=== PATIENT | male | born 1980 | race Caucasian/White ===

== ENCOUNTER 2017-09-04 05:34 | Day surgery (SDC) | payer OTHER ==
[2017-09-04] MEDS ORDERED: CEFAZOLIN 2 GM/50 ML (PMX) 50 ML IVPB (06:00)
[2017-09-04] MEDS ORDERED: LACTATED RINGER'S 1,000 ML IV* (06:00)
[2017-09-04] MEDS ORDERED: ROCURONIUM 50 MG INJ (06:29)
[2017-09-04] MEDS ORDERED: FENTAnyl 50 MCG/ML VIAL (06:29)
[2017-09-04] MEDS ORDERED: NEOSTIGMINE 3 MG/3 ML SYRINGE (06:29)
[2017-09-04] MEDS ORDERED: PROPOFOL 20 ML (06:29)
[2017-09-04] MEDS ORDERED: LIDOCAINE 2% (SDV) 5 ML INJ (06:29)
[2017-09-04] MEDS ORDERED: MIDAZOLAM 1 MG/ML 2 ML INJ (06:29)
[2017-09-04] MEDS ORDERED: GLYCOPYRROLATE 0.4 MG INJ (06:29)
[2017-09-04] MEDS ORDERED: ATROPINE 1 MG/10 ML SYRINGE IV (06:30)
[2017-09-04] MEDS ORDERED: LABETALOL HCL 20MG INJ IV (06:30)
[2017-09-04] MEDS ORDERED: EPHEDrine SULFATE 50 MG/5 ML SYG IV (06:30)
[2017-09-04] MEDS ORDERED: MIDAZOLAM 1 MG/ML 2 ML INJ IV (06:30)
[2017-09-04] MEDS ORDERED: OXYCODONE/ACETAMINOPHEN (5/325) TAB PO ×2 (06:30)
[2017-09-04] MEDS ORDERED: morphine (1 MG/ML) 10ML SYRINGE IV ×3 (06:30)
[2017-09-04] MEDS ORDERED: DEXAMETHASONE 4 MG/ML 1 ML INJ (06:30)
[2017-09-04] MEDS ORDERED: DIPHENHYDRAMINE 50 MG INJ IV (06:30)
[2017-09-04] MEDS ORDERED: hydrALAzine 20 MG INJ IV (06:30)
[2017-09-04] MEDS ORDERED: MEPERIDINE 25 MG INJ IV (06:30)
[2017-09-04] MEDS ORDERED: FENTAnyl 50 MCG/ML VIAL IV ×2 (06:30)
[2017-09-04] MEDS ORDERED: HYDROmorphONE (0.2 MG/ML) 10ML SYG IV (06:30)
[2017-09-04] MEDS ORDERED: ONDANSETRON 4 MG INJ (06:31)
[2017-09-04] MEDS ORDERED: SUCCINYLCHOLINE CHLORIDE 100 MG/5 ML SYG IV (06:36)
[2017-09-04] MEDS ORDERED: GELATIN SIZE 100 SPONGE (06:55)
[2017-09-04] MEDS ORDERED: POLYMYXIN/BACITRACIN 1L IRRIG (06:56)
[2017-09-04] MEDS ORDERED: CEFAZOLIN 1 GM INJ (07:17)
[2017-09-04] MEDS ORDERED: MIDAZOLAM (2 MG/ML) 5 ML CUP PO (07:30)
[2017-09-04] MEDS: BUPIVACAINE 0.25% (MPF) 30 ML INJ (08:14)
[2017-09-04] MEDS: THROMBIN 5000 UNIT VIAL (08:25)
[2017-09-04] MEDS: POLYMYXIN/BACITRACIN 1L IRRIG (08:25)
[2017-09-04] MEDS: HEMOSTATIC MATRIX SYG ZFS (08:26)
[2017-09-04] MEDS: BETAMET NA PHOS/AC(6 MG/ML) 5ML INJ (09:33)
[2017-09-04] MEDS: BUPIVACAINE 0.25%/EPI (SDV) 30 ML INJ (09:33)
[2017-09-04] MEDS: HYDROmorphONE (0.2 MG/ML) 10ML SYG IV ×4 (10:57→11:24)
[2017-09-04] MEDS: ONDANSETRON 4 MG INJ IV (10:59)
[2017-09-04] MEDS: HYDROCODONE/APAP (10/325) TAB PO (12:04)
== END 2017-09-04 16:00 | disposition home or self-care (01) ==
LOC: SDS 05:34
DX: M51.16 Intervertebral disc disorders with radiculopathy, lumbar region (principal)
CPT/HCPCS: 63030; 72100; 97162